=== PATIENT | female | born 1955 | race Caucasian/White ===

== ENCOUNTER → 2017-07-24 | Day surgery (SDC) | payer MEDICARE, OTHER ==
[~2017-07-24] MED LIST: CITA20 PO; LEVO100T4 PO; MOBI15TA PO; NAPR220T95 PO; PROPOFOL 100 MG/10 ML INJ IV ONE; PROPOFOL 500 MG/50 ML BTL IV ONE; SIMV40 PO
--- NOTE | 2017-07-24 15:51 | GIPROC ---
[facility] [address] [place], [address] COLONOSCOPY PROCEDURE REPORT EXAM DATE: 07/24/2017 PATIENT NAME: Jemma Tran MR #: [id number] BIRTHDATE: 1955 ENDOSCOPIST: Beverly Solorio MD ORDER #: [id number] SPINDLE SETTER: Avi Cabrera RN STATUS: outpatient INDICATIONS: The patient is a 62 yr old female here for a colonoscopy due to average risk patient for colon cancer and ocassional rectal discomfort PROCEDURE PERFORMED: Colonoscopy with biopsy MEDICATIONS: None and Per Anesthesia. PREP QUALITY: good PREP TYPE:Other: ESTIMATED BLOOD LOSS: None CONSENT: The patient understands the risks and benefits of the procedure and understands that these risks include, but are not limited to: sedation, allergic reaction, infection, perforation and/or bleeding. Alternative means of evaluation and treatment include, among others: physical exam, x-rays, and/or surgical intervention. The patient elects to proceed with this endoscopic procedure. medical equipment was checked for proper function. Hand hygiene and appropriate measures for infection prevention was taken. After the risks, benefits and alternatives of the procedure were thoroughly explained, Informed consent was verified, confirmed and timeout was successfully executed by the treatment team. A digital exam revealed external hemorrhoids The EC-[id number] ([id number]) and [id number] ([id number]) endoscope was introduced through the anus and advanced to the cecum, which was identified by both the appendix and ileocecal valve. The instrument was then slowly withdrawn as the colon was fully examined. COLON FINDINGS: Diverticulum cecum diverticulosis sigmoid,descending diminutive polyp rectum-cold biopsy with complete removal. Retroflexed views revealed internal hemorrhoids and Retroflexed views revealed medium internal hemorrhoids The scope was then completely withdrawn from the patient and the procedure terminated. PROCEDURE WITHDRAWAL TIME:6minutes ADVERSE EVENTS: There were no complications. IMPRESSIONS: 1. Diverticulum cecum diverticulosis sigmoid,descending diminutive polyp rectum-cold biopsy with complete removal 2. Retroflexed views revealed internal hemorrhoids 3. Retroflexed views revealed medium internal hemorrhoids 4. Revealed external hemorrhoids RECOMMENDATIONS: 1. Await biopsy results. Biopsy results will not be ready for 7-10 days. If you don't hear from us in two weeks, call our office for results. 2. Benefiber 2 tsp daily 3. High fiber diet 4. Probiotics from any [facility] or health food store 5. Yearly rectal exams 6. Prctozone cream lidocaine cream RECALL: Return 10 years Colonoscopy pending pathology report Beverly Solorio MD eSigned: Beverly Solorio MD 07/24/2017 3:51 PM cc: Tigre Mckenna [facility] Giovanna and Angelina Shanks M.D. PATIENT NAME: Jemma Tran MR#: [id number]
== END | disposition home or self-care (01) ==
LOC: ESDC 11:29
PROVIDERS: ATTEND Internal Medicine Gastroenterology
DX: Z12.11 Encounter for screening for malignant neoplasm of colon (principal); K64.4 Residual hemorrhoidal skin tags; K57.90 Diverticulosis of intestine, part unspecified, without perforation or abscess without bleeding; K63.5 Polyp of colon; K64.8 Other hemorrhoids
CPT/HCPCS: 88305

== ENCOUNTER → 2017-09-06 | Outpatient (CLI) | payer MEDICARE, OTHER ==
[~2017-09-06] MED LIST changes: +ASPI-183 PO; +CELE20TA PO; +HYDR-3583 PO; +LEVO75TA3 PO; -PROPOFOL 100 MG/10 ML INJ IV ONE; -PROPOFOL 500 MG/50 ML BTL IV ONE; +TRAM50 PO; +TRAM50TA PO; +WALKER WHEELS/F1 MIS; +ZOCO40TA PO
[2017-09-06 10:52] LABS: AUTOMATED NEUTROPHIL # 3.5 TH/MM3 (1.8-7.7); BASOPHIL % 0.8 % (0.0-2.0); EOSINOPHIL # 0.2 TH/MM3 (0-0.4); HEMATOCRIT 41.6 % (35.0-46.0); HEMO FLAGS DIFF FINAL; LYMPH % 29.2 % (9.0-44.0); LYMPHOCYTE # 1.7 TH/MM3 (1.0-4.8); MEAN CELL VOLUME 88.1 FL (80.0-100.0); PLATELET COUNT 263 TH/MM3 (150-450); RED BLOOD COUNT 4.72 MIL/MM3 (4.00-5.30); RED CELL DISTRIBUTION WIDTH 13.9 % (11.6-17.2); WHITE BLOOD COUNT 5.9 TH/MM3 (4.0-11.0)
[2017-09-06 11:34] LABS: BLOOD, URINE LARGE (NEG); GLUCOSE,URINE NEG (NEG); KETONE, URINE NEG (NEG); MUCUS URINE FEW /lpf (OCC); NITRITE,URINE NEG (NEG); PH, URINE 5.5 (5.0-8.5); SQUAMOUS EPITHELIAL CELL URINE <1 /hpf (0-5); URINE COLOR YELLOW (YELLW/STRAW)
[2017-09-06 11:35] LABS: COMMENT (UR) CATH-CULT NOT IND; CULTURE IF INDICATED CATH CULTURE NOT IND
--- NOTE | 2017-09-06 11:41 | RADRPT ---
EXAM DATE/TIME: 09/06/2017 11:20 [facility] COMPARISON: No previous studies available for comparison. INDICATIONS : Evaluate for pneumonia, pneumothorax or communicable disease. Pre op for left knee [id number] MEDICAL HISTORY : None. SURGICAL HISTORY : None. ENCOUNTER: Initial ACUITY: 1 day PAIN SCORE: 0/10 LOCATION: Bilateral chest FINDINGS: PA and lateral views of the chest demonstrate the lungs to be symmetrically aerated without evidence of mass, infiltrate or effusion. The cardiomediastinal contours are unremarkable. Osseous structure s are intact. CONCLUSION: 1. No acute cardiopulmonary findings. Rony Rodriguez MD on September 06, 2017 at 11:39 Board Certified Radiologist. This report was verified electronically.
[2017-09-06 14:10] LABS: BICARBONATE 29.9 MEQ/L (21.0-32.0); POTASSIUM 4.7 MEQ/L (3.5-5.1)
--- NOTE | 2017-09-06 15:53 | EKG ---
Date Performed: 09/06/2017 Time Performed: 10:34:38 PTAGE: 62 years EKG: Sinus rhythm POSSIBLE INFERIOR MYOCARDIAL INFARCTION, PROBABLY OLD BORDERLINE ECG Compared to PREVIOUS TRACING , the patient has developed integral inferior Q waves, considered for an inferior AK, age indeterminate. Clinical correlation suggested. PREVIOUS TRACIN12/10/2013 10.35 DOCTOR: Alethea Ojeda Interpretating Date/Time 09/06/2017 15:52:24
== END ==
LOC: CPRE 09:58
PROVIDERS: ATTEND Orthopaedic Surgery
DX: Z01.810 Encounter for preprocedural cardiovascular examination (principal); Z01.811 Encounter for preprocedural respiratory examination; Z01.812 Encounter for preprocedural laboratory examination; M17.12 Unilateral primary osteoarthritis, left knee
CPT/HCPCS: 36415; 71020; 80048; 81001; 85025; 85610; 93005

== ENCOUNTER 2017-09-18 06:22 | Inpatient (IN) | payer MEDICARE, OTHER ==
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
[~2017-09-18] VITALS: Ht 167.6 cm; Wt 93.3 kg
[~2017-09-18 06:22] MED LIST changes: -ASPI-183 PO; -CITA20 PO; -HYDR-3583 PO; -LEVO100T4 PO; -MOBI15TA PO; -NAPR220T95 PO; -SIMV40 PO; -TRAM50 PO; -WALKER WHEELS/F1 MIS
[2017-09-18] MEDS ORDERED: POVIDONE IODINE 7.5% SCRUB 118 ML BOTTLE TOPICAL SCH (07:45)
[2017-09-18] MEDS ORDERED: LACTATED RINGER'S 1000 ML IV PRN (07:45)
[2017-09-18] MEDS ORDERED: CHLORHEXIDINE GLUCONATE 2 % 1 PACK (2 CLOTHS) TOPICAL PRN (07:45)
[2017-09-18] MEDS ORDERED: SODIUM CHLORID 0.9% 500 ML IV PRN (07:45)
[2017-09-18] MEDS ORDERED: METOPROLOL TARTRATE 25 MG TAB PO PRN (07:45)
[2017-09-18] MEDS ORDERED: POVIDONE IODINE 5% (ANTISEPSIS KIT) 4 APPLICATIONS EACH NARE PRN (07:45)
[2017-09-18] MEDS ORDERED: ceFAZolin 2 GM PREMIX 50 ML IV SCH (07:45)
[2017-09-18] MEDS ORDERED: ceFAZolin INJ 1,000 MG VIAL ONE (07:59)
[2017-09-18] MEDS ORDERED: BUPIVACAINE HCL PF 0.5% 30 ML VIAL ONE (09:34)
[2017-09-18] MEDS: TRANEXAMIC ACID 1 GM PRIOR TO PROCEDURE IV SCH ×4 (10:01→10:36)
[2017-09-18] MEDS ORDERED: TRANEXAMIC ACID 1 GM POST-OP IV SCH ×2 (11:00)
[2017-09-18] MEDS ORDERED: *morphine SULFATE 8 MG/ML PERIprocedure ONLY ONE ×3 (12:22→12:59)
[2017-09-18] MEDS ORDERED: DO NOT ADM ANY ANTICOAGULANT DRUGS PRN (12:22)
[2017-09-18] MEDS ORDERED: DOCUSATE SODIUM 100 MG CAP PO PRN (12:30)
[2017-09-18] MEDS ORDERED: MORPHINE SULFATE 30 MG/30 ML PCA IV SCH (12:30)
[2017-09-18] MEDS ORDERED: NALOXONE HCL 0.4 MG/ML AMP IV PUSH PRN (12:30)
[2017-09-18] MEDS ORDERED: ZOLPIDEM TARTRATE 5 MG TAB PO PRN (12:30)
[2017-09-18] MEDS ORDERED: diphenhydrAMINE HCL 25 MG CAP PO PRN (12:30)
[2017-09-18] MEDS ORDERED: ACETAMINOPHEN 325 MG TAB PO PRN (12:30)
[2017-09-18] MEDS ORDERED: TRANEXAMIC ACID INJ 1,000 MG in SODIUM CHLORIDE 0.9% INJ 100 ML IV SCH (12:30)
[2017-09-18] MEDS ORDERED: Post-op Orders (for Pharmacy) XX ONE (12:30)
[2017-09-18] MEDS ORDERED: ACETAMINOPHEN/HYDROcodone 325 MG/10 MG TAB PO PRN (12:30)
[2017-09-18] MEDS ORDERED: MISCELLANEOUS PHARMACY INFORMATION XX ONE (12:30)
[2017-09-18] MEDS: DEXT 5%-NACL 0.45% 1000 ML INJ 1,000 ML IV SCH ×2 (13:00→22:28)
--- NOTE | 2017-09-18 13:23 | PD.CONS ---
[facility] By [facility] surgery Reason for Consult Medical management Primary Care Physician Angelina Shanks M.D. Diagnoses: History of Present Illness 62-year-old female with a history of severe end-stage left knee OA despite medical management including NSAIDs, steroid injections and physical therapy continued to have severe anemia affecting her daily living up activity, was taken to the OR today and underwent left total knee arthroplasty. Patient was seen postoperatively in PACU, where she denies any chest pain or shortness of breath. Vitals stable. Patient also reported prior arthroscopies surgery to her left knee. Review of Systems Except as stated in HPI: all other systems reviewed are Neg Past Family Social History Allergies: Coded Allergies: No Known Allergies (Verified Allergy, Unknown, 09/18/17) Past Medical History end stage severe left knee OA Hyperlipidemia Hypothyroidism Past Surgical History Arthroscopic surgeries Surgical stabilization of a right ankle fracture s/p Left total knee arthroplasty 09/18/17. Reported Medications 1. Tramadol 50 mg three times daily. 2. Simvastatin 40 mg daily. 3. Levothyroxine 0.075 mg daily. 4. Citalopram 20 mg daily. Family History Noncontributory Social History Patient denies tobacco, alcohol or illicit drug intake Physical Exam Vital Signs Vital Signs Date Time Temp Pulse Resp B/P (MAP) Pulse Ox O2 Delivery O2 Flow Rate FiO2 09/18/17 08:10 98.2 70 20 137/74 (95) 98 Physical Exam GENERAL: This is a well-nourished, well-developed patient, in no apparent distress. SKIN: No rashes, ecchymoses or lesions. Cool and dry. HEAD: Atraumatic. Normocephalic. No temporal or scalp tenderness. EYES: Pupils equal round and reactive. Extraocular motions intact. No scleral icterus. No injection or drainage. ENT: Nose without bleeding, purulent drainage or septal hematoma. Throat without erythema, tonsillar hypertrophy or exudate. Uvula midline. Airway patent. NECK: Trachea midline. No JVD or lymphadenopathy. Supple, nontender, no meningeal signs. CARDIOVASCULAR: Regular rate and rhythm without murmurs, gallops, or rubs. RESPIRATORY: Clear to auscultation. Breath sounds equal bilaterally. No wheezes , rales, or rhonchi. GASTROINTESTINAL: Abdomen soft, non-tender, nondistended. No hepato-splenomegaly , or palpable masses. No guarding. MUSCULOSKELETAL: Extremities without clubbing, cyanosis, or edema. Left knee repair, dressing in place-neurovascular intact NEUROLOGICAL: Awake and alert. Cranial nerves II through XII intact. Motor and sensory grossly within normal limits. Five out of 5 muscle strength in all muscle groups. Normal speech. Assessment and Plan Assessment and Plan 62-year-old female with End-stage left knee OA s/p Left total knee arthroplasty 09/18/17 Management per orthopedic surgery Continue current postop care including IV antibiotics, parenteral pain medication PT consult to treat and eval Xarelto DVT prophylaxis Monitor for postop anemia Hyperlipidemia Resume statin Hypothyroidism Resume Synthroid DVT prophylaxis: Xarelto Check CBC and BMP in a.m. \ Thank you For this consultation Code Status Full code Discussed Condition With Patient, PACU nurse Maurizio Espinosa MD Sep 18, 2017 13:23
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
[2017-09-18] MEDS: PCA - TOTAL MG MORPHINE DELIVERED PER SHIFT SCH ×2 (14:00→22:00)
[2017-09-18] MEDS ORDERED: RESP: ALBUTEROL 2.5 MG/IPRATROPIUM 0.5 MG NEB (PRN) NEB (14:15)
[2017-09-18] MEDS ORDERED: ENALAPRILAT 1.25 MG/ML VIAL IV PUSH PRN (14:15)
--- NOTE | 2017-09-18 14:28 | RADRPT ---
EXAM DATE/TIME: 09/18/2017 13:24 [facility] COMPARISON: No previous studies available for comparison. INDICATIONS : Post-op left knee. MEDICAL HISTORY : None. SURGICAL HISTORY : None. ENCOUNTER: Initial ACUITY: 1 day PAIN SCORE: 8/10 LOCATION: Left Knee. FINDINGS: Postsurgical features of left knee arthroplasty. Arthroplasty components are in anatomic alignment. N o significant acute bony fracture. Immediate postsurgical soft tissue features. CONCLUSION: 1. Status post left knee arthroplasty in anatomic alignment without significant acute bony fracture. Theodore Forrest MD on September 18, 2017 at 14:26 Board Certified Radiologist. This report was verified electronically.
[2017-09-18 17:45] VITALS: BP 145/87; PULSE 97; RESP 18; TEMP 96.7; O2SAT 95
[2017-09-18] MEDS: ONDANSETRON HCL 4 MG/2 ML VIAL IVP PRN (18:48)
[2017-09-18 19:44] VITALS: O2SAT 95
[2017-09-18 20:00] VITALS: BP 127/73; PULSE 85; RESP 18; TEMP 96.3; O2SAT 95
[2017-09-18] MEDS: PRAVASTATIN SOD 80 MG TAB PO SCH (21:00)
[2017-09-19] VITALS (7 sets, daily range): BP systolic 111–140; BP diastolic 59–78; PULSE 80–99; RESP 17–18; TEMP 96.9–99.7; O2SAT 91–97
[2017-09-19] MEDS: ONDANSETRON HCL 4 MG/2 ML VIAL IVP PRN ×3 (03:49→12:16)
[2017-09-19] MEDS: PCA - TOTAL MG MORPHINE DELIVERED PER SHIFT SCH ×3 (06:00→21:02)
[2017-09-19] MEDS: LEVOTHYROXINE SODIUM 75 MCG TAB PO SCH (06:09)
[2017-09-19] MEDS ORDERED: HYDR-3583 PO (06:33)
[2017-09-19] MEDS ORDERED: ASPI-183 PO (06:33)
--- NOTE | 2017-09-19 06:35 | HHI.FF ---
Face to Face Verification Diagnosis: (1) DJD (degenerative joint disease) of knee Physical Therapy Gait training Knee: Total knee, Protocol: Left, Full weight bearing Left LE Weight Bearing: WB as tolerated Left LE Range of Motion: Active ROM Nursing Dressing Changes: Daily dressing change I have seen patient Jemma Tran on 09/19/17. My clinical findings support the need for the requested home health care services because: Limited ability to care for self High risk of falls I certify that my clinical findings support that this patient is homebound because: Post-op weakness Unsteady gait/balance Unsafe to leave home unassisted Sylvester Boyer MD Sep 19, 2017 06:35
[2017-09-19] MEDS ORDERED: WALKER WHEELS/F1 MIS (06:37)
[2017-09-19 08:06] LABS: HEMATOCRIT 35.6 % (35.0-46.0); REVIEW FLAG FINAL
[2017-09-19] MEDS: CITALOPRAM HYDROBROMIDE 20 MG TAB PO SCH (08:45)
[2017-09-19] MEDS: DEXT 5%-NACL 0.45% 1000 ML INJ 1,000 ML IV SCH ×2 (08:46→12:34)
--- NOTE | 2017-09-19 10:07 | HHI.PR ---
Subjective Remarks Patient seen and examined Complains of left knee soreness otherwise stable Afebrile Objective Vitals Vital Signs Date Time Temp Pulse Resp B/P (MAP) Pulse Ox O2 Delivery O2 Flow Rate FiO2 09/19/17 08:00 99.5 88 17 123/59 (80) 95 09/19/17 06:00 15 09/19/17 04:05 97.2 99 18 124/78 (93) 96 09/19/17 00:03 96.9 85 18 121/61 (81) 96 09/18/17 22:00 15 09/18/17 20:00 96.3 85 18 127/73 (91) 95 09/18/17 19:44 95 21 09/18/17 17:45 96.7 97 18 145/87 (106) 95 09/18/17 17:45 Nasal Cannula 2.00 09/18/17 17:00 74 14 144/83 (103) 98 Nasal Cannula 2 09/18/17 16:00 98.2 78 16 142/65 (90) 97 Nasal Cannula 2 09/18/17 15:00 81 16 131/77 (95) 98 Nasal Cannula 2 09/18/17 14:00 14 09/18/17 13:45 72 16 149/65 (93) 98 Nasal Cannula 3 09/18/17 13:30 79 17 161/72 (101) 99 Nasal Cannula 3 09/18/17 13:15 77 15 149/67 (94) 98 Nasal Cannula 3 09/18/17 13:05 12 09/18/17 13:00 75 15 151/67 (95) 98 Nasal Cannula 3 09/18/17 13:00 14 09/18/17 12:45 76 17 151/77 (101) 98 Nasal Cannula 3 09/18/17 12:30 82 14 132/95 (107) 98 Nasal Cannula 3 09/18/17 12:16 98.6 69 14 131/63 (85) 93 Room Air I/O 09/18/17 09/18/17 09/18/17 09/19/17 09/19/17 09/19/17 07:00 15:00 23:00 07:00 15:00 23:00 Intake Total 1000 ml 850 ml 240 ml Output Total 100 ml 150 ml 170 ml Balance 900 ml 700 ml 70 ml Intake Oral 240 ml 240 ml IV Total 460 ml Autotransfusion 150 ml Other 1000 ml Output Drainage Total 170 ml Estimated Blood Loss 100 ml Autotransfusion 150 ml # Voids 1 2 # Bowel Movements 0 0 Result Diagram: 09/19/17 0644 Imaging Last Impressions Knee X-Ray 09/18/17 1217 Signed Impressions: Service Date/Time: Monday, September 18, 2017 13:24 - CONCLUSION: 1. Status post left knee arthroplasty in anatomic alignment without significant acute bony fracture. Theodore Forrest MD Objective Remarks GENERAL: NAD SKIN: Warm and dry. HEAD: Normocephalic. EYES: No scleral icterus. No injection or drainage. NECK: Supple, trachea midline. No JVD or lymphadenopathy. CARDIOVASCULAR: Regular rate and rhythm without murmurs, gallops, or rubs. RESPIRATORY: Breath sounds equal bilaterally. No accessory muscle use. GASTROINTESTINAL: Abdomen soft, non-tender, nondistended. MUSCULOSKELETAL: No cyanosis, or edema. Left knee repair and dressing in place- neurovascular intact BACK: Nontender without obvious deformity. No CVA tenderness. A/P Assessment and Plan 62-year-old female with End-stage left knee OA s/p Left total knee arthroplasty 09/18/17 Management per orthopedic surgery Continue current postop care including IV antibiotics, parenteral pain medication PT to treat and eval Xarelto DVT prophylaxis Monitor for postop anemia Hyperlipidemia Continue statin Hypothyroidism Continue Synthroid DVT prophylaxis: Maurizio Carballo MD Sep 19, 2017 10:07
[2017-09-19] MEDS: RIVAROXABAN 10 MG TAB PO SCH (11:00)
[2017-09-19] MEDS: traMADol HCL 50 MG TAB PO PRN ×2 (12:33→19:22)
[2017-09-19] MEDS: PRAVASTATIN SOD 80 MG TAB PO SCH (21:01)
[2017-09-20] VITALS: BP 135/65; PULSE 86; RESP 16; TEMP 99.3; O2SAT 98
[2017-09-20] MEDS: traMADol HCL 50 MG TAB PO PRN ×4 (03:30→20:15)
[2017-09-20] MEDS: PCA - TOTAL MG MORPHINE DELIVERED PER SHIFT SCH (05:54)
[2017-09-20] MEDS: LEVOTHYROXINE SODIUM 75 MCG TAB PO SCH (05:54)
[2017-09-20] MEDS ORDERED: TRAM50 PO (06:31)
[2017-09-20 08:00] VITALS: BP_SYST 107; BP_SYST 129; BP_DIAS 68; BP_DIAS 70; PULSE 70; PULSE 87; RESP 18; RESP 19; TEMP 96.8; TEMP 99.1; O2SAT 97; O2SAT 99
[2017-09-20] MEDS: CITALOPRAM HYDROBROMIDE 20 MG TAB PO SCH (09:42)
[2017-09-20 12:00] VITALS: BP 137/70; PULSE 96; RESP 19; TEMP 99.3; O2SAT 96
--- NOTE | 2017-09-20 12:14 | HHI.PR ---
Subjective Remarks Patient seen and examined, Stable and no acute event overnight Objective Vitals Vital Signs Date Time Temp Pulse Resp B/P (MAP) Pulse Ox O2 Delivery O2 Flow Rate FiO2 09/20/17 08:00 99.1 87 19 129/70 (89) 97 09/20/17 00:00 99.3 86 16 135/65 (88) 98 09/19/17 20:07 91 21 09/19/17 20:00 98.5 80 17 132/69 (90) 97 09/19/17 16:00 99.7 88 17 111/65 (80) 91 09/19/17 14:00 18 I/O 09/19/17 09/19/17 09/19/17 09/20/17 09/20/17 09/20/17 07:00 15:00 23:00 07:00 15:00 23:00 Intake Total 240 ml 827 ml 720 ml 480 ml Output Total 170 ml 310 ml 30 ml Balance 70 ml 827 ml 410 ml 450 ml Intake Oral 240 ml 480 ml 720 ml 480 ml IV Total 347 ml Output Drainage Total 170 ml 310 ml 30 ml # Voids 2 3 1 1 # Bowel Movements 0 0 Result Diagram: 09/19/17 0644 Objective Remarks GENERAL: NAD SKIN: Warm and dry. HEAD: Normocephalic. EYES: No scleral icterus. No injection or drainage. NECK: Supple, trachea midline. No JVD or lymphadenopathy. CARDIOVASCULAR: Regular rate and rhythm without murmurs, gallops, or rubs. RESPIRATORY: Breath sounds equal bilaterally. No accessory muscle use. GASTROINTESTINAL: Abdomen soft, non-tender, nondistended. MUSCULOSKELETAL: No cyanosis, or edema. Left knee repair and dressing in place- neurovascular intact BACK: Nontender without obvious deformity. No CVA tenderness. A/P Assessment and Plan 62-year-old female with End-stage left knee OA s/p Left total knee arthroplasty 09/18/17 Management per orthopedic surgery Continue current with parenteral pain medication PT to treat and eval Xarelto DVT prophylaxis Monitor for postop anemia Hyperlipidemia Continue statin Hypothyroidism Continue Synthroid DVT prophylaxis: Maurizio Carballo MD Sep 20, 2017 12:14
[2017-09-20] MEDS: RIVAROXABAN 10 MG TAB PO SCH (15:48)
[2017-09-20 16:00] VITALS: BP 149/69; PULSE 92; RESP 19; TEMP 99; O2SAT 98
[2017-09-20 20:00] VITALS: BP 136/70; PULSE 81; RESP 17; TEMP 99.5; O2SAT 97
[2017-09-20] MEDS: PRAVASTATIN SOD 80 MG TAB PO SCH (20:15)
[2017-09-21] VITALS: BP 137/71; PULSE 90; RESP 16; TEMP 99.4; O2SAT 98
[2017-09-21] MEDS: ACETAMINOPHEN/HYDROcodone 325 MG/10 MG TAB PO PRN ×2 (00:46→11:28)
[2017-09-21] MEDS: LEVOTHYROXINE SODIUM 75 MCG TAB PO SCH (06:05)
[2017-09-21 07:28] VITALS: BP 124/72; PULSE 85; RESP 16; TEMP 96.8; O2SAT 95
[2017-09-21] MEDS: traMADol HCL 50 MG TAB PO PRN (08:28)
[2017-09-21] MEDS: CITALOPRAM HYDROBROMIDE 20 MG TAB PO SCH (08:29)
--- NOTE | 2017-09-21 10:16 | HHI.PR ---
Subjective Remarks Patient is stable and ready for discharge NO complaint Objective Vitals Vital Signs Date Time Temp Pulse Resp B/P (MAP) Pulse Ox O2 Delivery O2 Flow Rate FiO2 09/21/17 07:28 96.8 85 16 124/72 (89) 95 09/21/17 00:00 99.4 90 16 137/71 (93) 98 09/20/17 20:00 99.5 81 17 136/70 (92) 97 09/20/17 16:42 20 09/20/17 16:00 99.0 92 19 149/69 (95) 98 09/20/17 12:00 99.3 96 19 137/70 (92) 96 I/O 09/20/17 09/20/17 09/20/17 09/21/17 09/21/17 09/21/17 07:00 15:00 23:00 07:00 15:00 23:00 Intake Total 480 ml 320 ml 600 ml 480 ml Output Total 30 ml Balance 450 ml 320 ml 600 ml 480 ml Intake Oral 480 ml 320 ml 600 ml 480 ml Output Drainage Total 30 ml # Voids 1 3 1 1 # Bowel Movements 0 1 Result Diagram: 09/19/17 0644 Objective Remarks GENERAL: NAD SKIN: Warm and dry. HEAD: Normocephalic. EYES: No scleral icterus. No injection or drainage. NECK: Supple, trachea midline. No JVD or lymphadenopathy. CARDIOVASCULAR: Regular rate and rhythm without murmurs, gallops, or rubs. RESPIRATORY: Breath sounds equal bilaterally. No accessory muscle use. GASTROINTESTINAL: Abdomen soft, non-tender, nondistended. MUSCULOSKELETAL: No cyanosis, or edema. Left knee repair and dressing in place- neurovascular intact BACK: Nontender without obvious deformity. No CVA tenderness. A/P Assessment and Plan 62-year-old female with End-stage left knee OA s/p Left total knee arthroplasty 09/18/17 Management per orthopedic surgery Continue current with parenteral pain medication PT to treat and eval Xarelto DVT prophylaxis Monitor for postop anemia Hyperlipidemia Continue statin Hypothyroidism Continue Synthroid DVT prophylaxis: Xarelto Discharge Planning d/c today Maurizio Espinosa MD Sep 21, 2017 10:16
[2017-09-21] MEDS ORDERED: HYDR-3583 PO (10:54)
[2017-09-21] MEDS: RIVAROXABAN 10 MG TAB PO SCH (11:27)
[2017-09-21 11:28] VITALS: BP 126/68; PULSE 85; RESP 16; TEMP 98.1; O2SAT 98
[2017-09-21] MEDS: DEXT 5%-NACL 0.45% 1000 ML INJ 1,000 ML IV SCH (12:17)
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
== END 2017-09-21 14:47 | DRG 470 ==
LOC: HSDI 06:22 → N06A 17:46
PROVIDERS: ADMIT Orthopaedic Surgery; ATTEND Orthopaedic Surgery
PROC: 0SRD0J9 Replacement of Left Knee Joint with Synthetic Substitute, Cemented, Open Approach (ICD-10-PCS; principal; 2017-09-18 10:00)
DX: M17.12 Unilateral primary osteoarthritis, left knee (principal); E03.9 Hypothyroidism, unspecified; M22.2X2 Patellofemoral disorders, left knee; M21.162 Varus deformity, not elsewhere classified, left knee; E78.5 Hyperlipidemia, unspecified
CPT/HCPCS: 73560; 85014; 85018; 86850; 86900; 86901; 88305; 94150; J0690; J2270; J2405; J7120; L1830